=== PATIENT | male | born 1980 | race Caucasian/White ===

== ENCOUNTER 2017-08-19 23:11 | Emergency (ER) | payer SELFPAY ==
[~2017-08-19] VITALS: Ht 180.3 cm; Wt 73.0 kg
[2017-08-19 23:48] VITALS: BP 127/66; PULSE 107; RESP 18; TEMP 98.1; O2SAT 96
[2017-08-19 23:56] VITALS: O2SAT 97
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
[2017-08-20] MEDS ORDERED: KETOROLAC TROMETHAMINE 60 MG/2 ML (IM) VIAL IM ONE (00:30)
[2017-08-20] MEDS ORDERED: ORPHENADRINE INJ 60 MG/2 ML AMP IM ONE (00:30)
[2017-08-20] MEDS ORDERED: TRAM50 PO (00:49)
--- NOTE | 2017-08-20 01:10 | RADRPT ---
EXAM DATE/TIME: 08/20/2017 00:22 [facility] COMPARISON: No previous studies available for comparison. INDICATIONS : Right mid shaft forearm pain. MEDICAL HISTORY : None. SURGICAL HISTORY : None. ENCOUNTER: Initial ACUITY: 1 day PAIN SCORE: 7/10 LOCATION: Right upper extremity FINDINGS: Two view examination of the right forearm demonstrates no evidence of fracture or dislocation. Bony mineralization is normal. The soft tissue structures are intact. CONCLUSION: Negative study with no underlying bony abnormality. Corona Levine MD on August 20, 2017 at 1:08 Board Certified Radiologist. This report was verified electronically.
--- NOTE | 2017-08-20 01:12 | RADRPT ---
EXAM DATE/TIME: 08/20/2017 00:22 [facility] COMPARISON: No previous studies available for comparison. INDICATIONS : Right hand, fifth digit pain. MEDICAL HISTORY : None. SURGICAL HISTORY : None. ENCOUNTER: Initial ACUITY: 1 day PAIN SCORE: 7/10 LOCATION: Right upper extremity FINDINGS: Three view examination of the right hand demonstrates no soft tissue swelling, dislocation, or fractu re. The carpal bones appear intact. The interphalangeal and metacarpophalangeal joints are intact. There are degenerative changes involving the fifth metacarpal carpal joint. Bony mineralization is n ormal. There is an old well-corticated ulnar styloid fragment. CONCLUSION: Degenerative change involving the fifth metacarpal carpal joint. There is no acute fr acture or malalignment. Corona Levine MD on August 20, 2017 at 1:08 Board Certified Radiologist. This report was verified electronically.
--- NOTE | 2017-08-20 01:13 | RADRPT ---
EXAM DATE/TIME: 08/20/2017 00:22 [facility] COMPARISON: No previous studies available for comparison. INDICATIONS : Right posterior, inferior rib pain. MEDICAL HISTORY : None. SURGICAL HISTORY : None. ENCOUNTER: Initial ACUITY: 1 day PAIN SCORE: 4/10 LOCATION: Right chest FINDINGS: Multiple views of the right ribs were performed. There is no evidence of displaced fracture. No kyle tructive lesions or areas of periosteal thickening are seen. Expiratory view of the chest is negativ e for pneumothorax. The mediastinal structures are midline. CONCLUSION: Negative exam. Corona Levine MD on August 20, 2017 at 1:10 Board Certified Radiologist. This report was verified electronically.
== END 2017-08-20 01:08 | disposition home or self-care (01) ==
LOC: PHED 23:11
DX: S23.41XA Sprain of ribs, initial encounter (principal); S63.501A Unspecified sprain of right wrist, initial encounter; S60.221A Contusion of right hand, initial encounter; Y09 Assault by unspecified means; Z72.0 Tobacco use
CPT/HCPCS: 71101; 73090; 73130; 96372; 99284; J1885

== ENCOUNTER 2017-09-01 14:15 | Emergency (ER) | payer SELFPAY ==
[~2017-09-01] VITALS: Ht 177.8 cm; Wt 75.0 kg
[~2017-09-01 14:15] MED LIST: TRAM50 PO
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
[2017-09-01 14:50] VITALS: BP 135/92; PULSE 110; RESP 16; TEMP 97.5; O2SAT 95
== END 2017-09-01 14:55 | disposition home or self-care (01) ==
LOC: NEPD 14:15
DX: F10.129 Alcohol abuse with intoxication, unspecified (principal); Z72.0 Tobacco use; Z88.8 Allergy status to other drugs, medicaments and biological substances
CPT/HCPCS: 99283